=== PATIENT | female | born 1950 | race Caucasian/White ===

== ENCOUNTER → 2017-03-06 | Outpatient (CLI) | payer MEDICARE, OTHER ==
[~2017-03-06] MED LIST: LORTAB 5/500 501 TAB PO; PRILOSEC20 M1 PO; SYNTHROID 0.1M0.1 MG PO; SYNTHROID0.025 MG PO
[2017-03-06 12:04] LABS: BUN 15 mg/dL (7-18)
[2017-03-06 12:22] LABS: GFR (ESTIMATED) 62 ML/MIN (59-)
== END ==
LOC: LAB 11:02
PROVIDERS: Internal Medicine Cardiovascular Disease
DX: R06.09 Other forms of dyspnea (principal); I20.9 Angina pectoris, unspecified; I10 Essential (primary) hypertension

== ENCOUNTER → 2017-07-22 | Outpatient (CLI) | payer MEDICARE, OTHER ==
--- NOTE | 2017-07-22 13:14 | RADIOLOGY REPORT PS360 ---
[facility] GASTRIC EMPTYING(NUCLEAR) HISTORY: EPIGASTRIC PAIN, BLOATING ORDERING PHYSICIAN: Joe Pate MD PATIENT AGE: 67 years COMPARISON: None DOSE: 0.51 mCi technetium sulfa colloid in a radiolabeled meal FINDINGS: One half emptying time is calculated to be 59 minutes which is within normal limits of 60 +/- 30 minutes. 66% of the gastric contents had emptied at 90 minutes. The images show no evidence of reflux. IMPRESSION: Normal gastric emptying time
== END ==
LOC: RAD 09:46
DX: R10.13 Epigastric pain (principal); R68.81 Early satiety; R14.0 Abdominal distension (gaseous)